=== PATIENT | female | born 1945 | race Caucasian/White ===

== ENCOUNTER → 2017-08-02 | Outpatient (CLI) | payer MEDICARE, MEDICAID ==
[~2017-08-02] MED LIST: ATOR10TA PO; Aspirin PO; FERR325T23 PO; LEVVL SUBCUT; LOSA50TA3 PO; METO50TA5 PO; PANT40TA4 PO; PLAVIX; lasix PO
== END | disposition home or self-care (01) ==
LOC: RAD 16:35
PROVIDERS: ATTEND Internal Medicine
DX: M85.80 Other specified disorders of bone density and structure, unspecified site (principal)
CPT/HCPCS: 72100

== ENCOUNTER 2018-03-12 19:28 | Emergency (ER) | payer MEDICARE, MEDICAID ==
[~2018-03-12] VITALS: Ht 154.9 cm; Wt 65.3 kg
[~2018-03-12 19:28] MED LIST changes: +METO-539 PO; -METO50TA5 PO
[2018-03-12] MEDS ORDERED: IBUPROFEN 600MG TABLET PO ONE (19:45)
[2018-03-12] MEDS ORDERED: KETOROLAC 60MG/2ML VIAL IM ONE (20:15)
[2018-03-12 20:59] VITALS: BP 133/66
== END 2018-03-12 21:10 | disposition home or self-care (01) ==
LOC: ER 19:28
DX: M25.571 Pain in right ankle and joints of right foot (principal); M19.071 Primary osteoarthritis, right ankle and foot; E11.9 Type 2 diabetes mellitus without complications; E78.00 Pure hypercholesterolemia, unspecified; I10 Essential (primary) hypertension; I25.2 Old myocardial infarction; Z88.0 Allergy status to penicillin; Z95.1 Presence of aortocoronary bypass graft; Z79.4 Long term (current) use of insulin
CPT/HCPCS: 73610; 96372; 99284; J1885